=== PATIENT | male | born 1985 | race Caucasian/White ===

== ENCOUNTER 2024-08-08 14:02 | Emergency (ER) | payer OTHER ==
[~2024-08-08] VITALS: Ht 175.2 cm; Wt 95.3 kg
[2024-08-08] MEDS ORDERED: FAMOTIDINE 50 ML IV ONE ×2 (14:25)
[2024-08-08] MEDS ORDERED: Dexamethasone Sodium Phospha 10 MG/1 ML VIAL IV ONE (14:25)
[2024-08-08] MEDS ORDERED: diphenhydrAMINE hydrochloride 50 MG/ML VIAL IV ONE (14:25)
[2024-08-08] MEDS ORDERED: SODIUM CHLORIDE 0.9% 1,000 ML IV ONE (14:25)
[2024-08-08] MEDS ORDERED: PREDNISONE20 M1 PO ×2 (15:36→15:41)
== END 2024-08-08 15:48 | disposition home or self-care (01) ==
LOC: ED 14:02
DX: T63.441A Toxic effect of venom of bees, accidental (unintentional), initial encounter (principal); R13.10 Dysphagia, unspecified; Y92.89 Other specified places as the place of occurrence of the external cause